=== PATIENT | female | born 1965 ===

== ENCOUNTER 2018-03-10 14:30 | Emergency (ER) | payer OTHER ==
[2018-03-10 14:36] VITALS: BP 166/90; PULSE 102; RESP 16; TEMP 98.6; O2SAT 98
--- NOTE | 2018-03-10 14:36 | C.PDOC ---
History Of Present Illness 53 year old female presents to the ED for evaluation of left forearm pain which began after she sustained a fall 5 days ago. Patient states she was standing on a chair, when the chair moved and caused her to slip off and fall onto her left forearm. She has had limited range of motion of the forearm since. She has been taking Ibuprofen with mild relief. Patient denies head injury, neck pain, loss of consciousness, extremity numbness/weakness, or any other injuries. History obtained via asp net developer due to language barrier. Time Seen by Provider: 03/10/18 14:36 Chief Complaint (Nursing): Upper Extremity Problem/Injury History Per: Patient, Advanced Manufacturing Consultant ([id number]) History/Exam Limitations: language barrier Onset/Duration Of Symptoms: Days (5) Current Symptoms Are (Timing): Still Present Quality: "Pain" Additional History Per: Patient Past Medical History Reviewed: Historical Data, Nursing Documentation, Vital Signs Vital Signs: Last Vital Signs Temp 98.6 F 03/10/18 14:33 Pulse 102 H 03/10/18 14:33 Resp 16 03/10/18 14:33 BP 166/90 H 03/10/18 14:33 Pulse Ox 98 03/10/18 14:33 - Medical History PMH: No Chronic Diseases Surgical History: No Surg Hx Family History: States: Unknown Family Hx - Social History Hx Alcohol Use: No Hx Substance Use: No - Immunization History Hx Tetanus Toxoid Vaccination: No Hx Influenza Vaccination: No Hx Pneumococcal Vaccination: No Review Of Systems Musculoskeletal: Positive for: Other (left forearm pain ) Neurological: Negative for: Weakness, Numbness Physical Exam - Physical Exam Appears: Non-toxic, No Acute Distress Skin: Normal Color, Warm, Dry, Other (contusion to left wrist ) Extremity: No Normal ROM (limited, secondary to pain ), Tenderness (left wrist ), Other (left shoulder and elbow are unremarkable ) Neurological/Psych: Oriented x3, Normal Speech, Normal Cognition, Normal Sensation, Other (good strength ) ED Course And Treatment O2 Sat by Pulse Oximetry: 98 - Other Rad left wrist XR X-Ray: Viewed By Me, Read By Radiologist Interpretation: Date of service: 03/10/2018. PROCEDURE: Left Wrist Radiographs. . HISTORY: fall 5d prior. COMPARISON: None. FINDINGS: BONES: Comminuted-impacted intra-articular fracture of the left radius with slight dorsal angulation of the distal fragments. Mild surrounding soft tissue swelling. JOINTS: Normal. No dislocation. SOFT TISSUES: As above. OTHER FINDINGS: None. IMPRESSION: Comminuted-impacted intra-articular fracture of the left radius with slight dorsal angulation of the distal fragments. Mild surrounding soft tissue swelling. Orthopedic Time Performed: 17:20 Other:: sugar tong, left Location: Left Diagnosis: Fracture Type: Closed Location: Left Other:: distal radius Capillary refill: Normal Distal Sensation: Normal Distal Motor Function: Normal Capillary Refill: Normal Compartment: Normal Distal Sensation: Normal Distal Motor Function: Normal Patient tolerated procedure: Well Medical Decision Making Medical Decision Making: Impression: 53 year old female with left forearm pain s/p mech fall. No blood thinner usage. 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 ?fracture, will XR. No scaphoid tenderness. No hand tenderness. No elbow tenderness. Only L wrist. Good pulses and neuro status. Plan: * left wrist XR * Motrin PO * CT upper extremity * reassess and disposition Progress: left wrist XR ordered and reviewed. Motrin PO given. 1611 spoke to zuri (ortho)- fully endorsed intra-articular + communited fx w/ n/v intact- we are to place sugar tong and ct and have pt followup outpt 174 splint placed: N/V intact post placement. Good cap refill. Informed pt to follow up w/ Dr. Tamayo (ortho). Family and pt agreeable to plan. Given return indications and followup. Disposition - Disposition Disposition Time: 17:43 Condition: GOOD Forms: [facility] (Nepali) - Clinical Impression Clinical Impression: Radial fracture - Scribe Statement The provider has reviewed the documentation as recorded by the Scribe Provider Attestation: All medical record entries made by the Scribe were at my direction and personally dictated by me. I have reviewed the chart and agree that the record accurately reflects my personal performance of the history, physical exam, medical decision making, and the department course for this patient. I have also personally directed, reviewed, and agree with the discharge instructions and disposition.
--- NOTE | 2018-03-10 15:55 | RAD ---
Date of service: 03/10/2018 PROCEDURE: Left Wrist Radiographs. HISTORY: fall 5d prior COMPARISON: None. FINDINGS: BONES: Comminuted-impacted intra-articular fracture of the left radius with slight dorsal angulation of the distal fragments. Mild surrounding soft tissue swelling. JOINTS: Normal. No dislocation. SOFT TISSUES: As above. OTHER FINDINGS: None. IMPRESSION: Comminuted-impacted intra-articular fracture of the left radius with slight dorsal angulation of the distal fragments. Mild surrounding soft tissue swelling.
--- NOTE | 2018-03-10 17:55 | CT ---
Date of service: 03/10/2018 PROCEDURE: CT of the left wrist HISTORY: Fracture left wrist. COMPARISON: Comparison made with plain film radiographs left wrist obtained earlier same day. TECHNIQUE: Contiguous axial images of the left wrist were obtained. Coronal and sagittal reformats were generated. Radiation dose: Total exam DLP = 144.57 mGy-cm. This CT exam was performed using one or more of the following dose reduction techniques: Automated exposure control, adjustment of the mA and/or kV according to patient size, and/or use of iterative reconstruction technique. FINDINGS: BONES: Current study read demonstrates comminuted slightly impacted intra-articular fracture of the distal left radius.. Slight dorsal displacement of distal fragments. There is mild surrounding soft tissue swelling . Joint spaces are otherwise preserved. SOFT TISSUES: As above.. No radiopaque foreign bodies IMPRESSION: Comminuted slightly impacted intra-articular fracture of the distal left radius with slight dorsal displacement of distal radial fragments. Mild surrounding soft tissue swelling. No other fractures. No radiopaque foreign bodies
== END 2018-03-10 17:52 | disposition home or self-care (01) ==
LOC: C.ER 14:30
DX: S52.572A Other intraarticular fracture of lower end of left radius, initial encounter for closed fracture (principal); W17.89XA Other fall from one level to another, initial encounter